=== PATIENT | female | born 1995 | race Two or more races ===

== ENCOUNTER 2020-10-16 10:16 | Outpatient (CLI) | payer OTHER | END 2020-10-16 15:00 | disposition home or self-care (01) | LOC: OFIC 805 10:16 | PROVIDERS: ATTEND Otolaryngology Otology & Neurotology | DX: H93.13 Tinnitus, bilateral (principal); H69.83 Other specified disorders of Eustachian tube, bilateral; J02.8 Acute pharyngitis due to other specified organisms; J35.1 Hypertrophy of tonsils; H93.93 Unspecified disorder of ear, bilateral ==